=== PATIENT | male | born 1960 | race Caucasian/White ===

== ENCOUNTER → 2017-03-09 | Outpatient (CLI) | payer OTHER ==
[2017-03-09 11:43] VITALS: BP 139/82
--- NOTE | 2017-03-09 11:43 | Urgent Care T Sheet Gen (E) ---
Intake General Temperature (Fahrenheit): 98.8 Pulse: 65 Blood Pressure Systolic: 139 Blood Pressure Diastolic: 82 Respirations: 18 SPO2: 97 Description of Symptoms Patient presents with R sided LBP which started yesterday upon awakening. Unsure if he slept wrong. Denies any injury. No history of LBP. States the pain is worse with sitting and sit to stand transfers. When he bends forward, states the back catches. no loss of bowel or bladder function. No weakness or numbness in the legs. Took ibuprofen 400mg twice yesterday with some improvement. Back feels better today but not 100%. Needs a note for work. History of Present Illness Allergies: Uncoded Allergies: BEE STING (Allergy, 07/30/13) Home Meds No Active Prescriptions or Reported Meds Respiratory Constitutional Symptoms: No syptoms reported EENTM: No symptoms reported Respiratory: No symptoms reported Cardiovascular: No symptoms reported Gastrointestinal/Abdominal: No symptoms reported Musculoskeletal: Back pain All Other Systems Reviewed Remaining Systems: All other systems reviewed with negative findings Past Wqpgwoi-Qmocic-Wbzyzo Hx Surgeries/Hospitalizations Hospitalization/Surgery Hx: APPY and Post Appy infection. denies any other Surgical HX. Respiratory Respiratory History: None Cardiovascular Cardiovascular History: None Reproductive System Sexually Transmitted Diseases: No Gastrointestinal GI/Endocrine History: None Diabetes Diabetes: No HEENT Impaired Vision: None Hearing Impaired: None Psychosocial Behavior Disorders: None Physical Exam Physical Exam General Appearance: WD/WN No apparent distress Back Exam: Other (L side of back including paraspinals are not painful. no pain with palpation over the spine. no pain with palpation over the R paraspinal muscles. pain with palpation over the R SI joint. no pain over the piriformis. negative straight leg raise. pain with stretching the piriformis muscle. no pain with R hip manipulation.) Neurologic/Psychiatric Exam: No motor deficits (normal strength in RLE) No sensory deficits (normal sensation and reflexes in LEs) Departure Urgent Care Impression Impression: Primary Impression: Sacroiliac joint dysfunction of right side Departure Disposition: 01 HOME OR SELF-CARE Condition: Stable Additional Instructions: The patient appears to have R SI joint dysfunction. Instructed him to increase his ibuprofen to 800mg TID through the weekend. Also instructed him to apply ice to the area. Could also use Capsaicin cream or BioFreeze topically. Also instructed him to look up [employer]obee[employer] videos to show him stretches and exercises to treat the SI joint Return as needed Note was given excusing him from work yesterday and today Patient understands DC instructions. All questions were answered. Scripts No Active Prescriptions or Reported Meds End of report . ESCOBAR ACUÑA Mar 09, 2017 11:43
== END ==
LOC: MHUC 11:20
PROVIDERS: ATTEND Physician Assistant
DX: M53.3 Sacrococcygeal disorders, not elsewhere classified (principal)
CPT/HCPCS: 99213